=== PATIENT | female | born 2000 | race American Indian/Alaskan Native ===

== ENCOUNTER 2018-06-23 12:19 | Emergency (ER) | payer MEDICAID ==
--- NOTE | 2018-06-23 12:32 | Emergency Department Report ---
Chief Complaint: Sore Throat Stated Complaint: SORE THROAT/HURTS TO SWALLOW Time Seen by Provider: 06/23/18 12:31 - HPI History of Present Illness: SORE THROAT SINCE SUNDAY FEVER PER PT- SUB HEADACHE HOARSE PMH NONE PSH NONE DENIES C/E/D CYCLE IRREG DUE TO BCP ABC INTACT MSE COMPLETED MSE screening note: Focused history and physical exam performed. Due to findings the following was ordered: ED Disposition for MSE Condition: Stable
--- NOTE | 2018-06-23 12:35 | Emergency Department Report ---
Minor Respiratory - HPI Chief Complaint: Sore Throat Stated Complaint: SORE THROAT/HURTS TO SWALLOW Time Seen by Provider: 06/23/18 12:31 Duration: 3 Days Pain Location: Throat Severity: mild Minor Respiratory: Yes Sore Throat, Yes Able to Tolerate Fluids, Yes Fever (SUB), No Rhinorrhea, No Ear Pain, No Cough, No Sick Contacts, No Hemoptysis, No Chest Pain, No Shortness of Breath Other History: 18 YO WITH SORETHROAT AND HOARSE SINCE SUNDAY. SUBJECTIVE FEVER. SEE MSE ED Review of Systems ROS: Stated complaint: SORE THROAT/HURTS TO SWALLOW Other details as noted in HPI Comment: All other systems reviewed and negative Constitutional: denies: chills Eyes: denies: eye pain ENT: as per HPI, throat pain Respiratory: denies: orthopnea Cardiovascular: denies: orthopnea Endocrine: denies: intolerance to cold Gastrointestinal: denies: nausea Genitourinary: denies: urgency Musculoskeletal: denies: back pain Skin: denies: rash Neurological: denies: as per HPI, headache Psychiatric: denies: anxiety Hematological/Lymphatic: denies: easy bleeding ED Past Medical Hx - Past Medical History Previous Medical History?: No - Surgical History Past Surgical History?: No - Family History Family history: no significant - Social History Smoking Status: Never Smoker Substance Use Type: None - Medications Home Medications: Home Medications Medication Instructions Recorded Confirmed Last Taken Type Amoxicillin 500 mg PO BID #20 capsule 06/23/18 Unknown Rx Minor Respiratory Exam - Exam General: Vital signs noted. No distress. Alert and acting appropriately. HEENT: Yes Pharyngeal Erythema, Yes Moist Mucous Membranes, No Pharyngeal Exudates, No Rhinorrhea, No Conjuctival Injection, No Frontal Tenderness, No Maxillary Tenderness Ear: Neither TM Bulge, Neither TM Erythema, Neither EAC Pain, Neither EAC Discharge Neck: Yes Adenopathy, Yes Supple Lungs: Yes Good Air Exchange, No Wheezes, No Ronchi, No Stridor, No Cough, No L abored Respirations, No Retractions, No Use of Accessory Muscles, No Other Abnormal Lung Sounds Heart: Yes Regular, No Murmur Abdomen: No Tenderness, No Peritoneal Signs Skin: No Rash, No Edema Neurologic: Alert and oriented, no deficits. Musculoskeletal: Unremarkable. ED Course Vital Signs 06/23/18 12:31 Temperature 97.9 F Pulse Rate 94 H Respiratory 18 Rate Blood Pressure 114/75 O2 Sat by Pulse 99 Oximetry ED Medical Decision Making - Medical Decision Making SIMPLE URTI ABC INTACT TAKING PO DC HOME WITH AMOX AND DC FOLLOW UP Critical care attestation.: If time is entered above; I have spent that time in minutes in the direct care of this critically ill patient, excluding procedure time. ED Disposition Clinical Impression: Pharyngitis Disposition: DC-01 TO HOME OR SELFCARE Is pt being admited?: No Does the pt Need Aspirin: No Condition: Stable Instructions: Pharyngitis (ED) Additional Instructions: REST HYDRATE WELL WITH WATER MED ORDERED TODAY DIET AND ACTIVITY TOLERATED FOLLOW UP PCP IF PERSISTS Referrals: [facility] [Outside] - 3-5 Days Forms: Work/School Release Form(ED) Time of Disposition: 12:39
== END 2018-06-23 12:33 | disposition home or self-care (01) ==
LOC: ED 12:19
DX: J02.9 Acute pharyngitis, unspecified (principal)
CPT/HCPCS: 99282